=== PATIENT | male | born 1995 | race Caucasian/White ===

== ENCOUNTER 2023-12-15 18:05 | Emergency (ER) | payer OTHER ==
[2023-12-15] MEDS: Erythromycin Base 0.5% Ophth Oint 1 GM Tube EYEBOTH ONE (19:05)
== END 2023-12-15 19:24 | disposition home or self-care (01) ==
LOC: MW.ED 18:05
DX: T15.02XA Foreign body in cornea, left eye, initial encounter (principal); Z75.8 Other problems related to medical facilities and other health care; W44.D0XA Magnetic metal object unspecified, entering into or through a natural orifice, initial encounter
CPT/HCPCS: 99283; A9270